=== PATIENT | female | born 1960 ===

== ENCOUNTER 2025-05-07 10:27 | Emergency (ER) | payer MEDICARE, OTHER ==
[2025-05-07] MEDS ORDERED: Boostrix 0.5 ML (Tdap) VIAL (>/=7 yrs of age) ONE (11:44)
== END 2025-05-07 11:30 | disposition home or self-care (01) ==
LOC: ERS 10:27
DX: S51.832A Puncture wound without foreign body of left forearm, initial encounter (principal); Z23 Encounter for immunization; W22.8XXA Striking against or struck by other objects, initial encounter
CPT/HCPCS: 90471; 90715